=== PATIENT | female | born 1950 | race Hispanic/Latino ===

== ENCOUNTER 2017-03-12 21:01 | Emergency (ER) | payer MEDICARE, BC ==
[2017-03-12 21:20] LABS: #Basophils 0.1 thou/uL (0.0-0.2); #Eosinphils 0.2 thou/uL (0.0-0.7); #Monocytes 0.8 thou/uL (0.11-0.59); #Neutrophils 3.5 thou/uL (1.40-6.50); %Basophils 0.7 % (0.0-1.0); %Lymphocytes 47.5 % (21.0-51.0); %Monocytes 8.8 % (0.0-10.0); Hematocrit 47.5 % (36.0-47.0); Red Blood Cell (RBC) Count 5.01 mill/uL (4.20-5.40); White Blood Cell (WBC) Count 8.5 thou/uL (4.8-10.8)
[2017-03-12] MEDS ORDERED: Famotidine 20 MG TAB ONE (21:39)
[2017-03-12 21:42] LABS: ALT (SGPT) 50 U/L (8-55); AST (SGOT) 38 U/L (5-34); Alkaline Phosphatase 83 U/L (40-150); Anion Gap 13 mmol/L (10-20); BUN (Urea Nitrogen) 11 mg/dL (9.8-20.1); Bilirubin, Total 0.6 mg/dL (0.2-1.2); Calc. Creatinine Clearance 0 mL/min (70-130); Calcium 9.5 mg/dL (7.8-10.44); Carbon Dioxide 28 mmol/L (23-31); Chloride 103 mmol/L (98-107); Estimated GFR-MDRD 63; Globulin 3.5 g/dL (2.4-3.5); Protein, Total 7.5 g/dL (6.0-8.3)
--- NOTE | 2017-03-12 21:57 | RAD ---
PA AND LATERAL VIEWS CHEST: 03/12/17 HISTORY: Epigastric pain, left flank pain. FINDINGS: Comparison is made with exam of 03/04/14. The heart size is mildly enlarged. The aorta is tortuous. The lungs are expanded with mild prominenc e of the pulmonary vascularity. No confluent areas of consolidation, pneumothorax, semaj pulmonary edema or pleural effusions are see. POS: [facility]
[2017-03-12 22:31] LABS: Bilirubin Negative (Negative); Blood, Urine Negative (Negative); Glucose, Urine (Dipstick) Negative (Negative); Ketone, Urine Negative (Negative); Nitrite Positive (Negative); Protein, Urine (Dipstick) Negative (Neg-Trace)
[2017-03-12 22:33] LABS: Bacteria/HPF 4+ HPF (None Seen); Hyaline Casts/LPF 0-3 HYALINE CAST LPF (0-3 Hyaline); RBC/HPF 0-3 HPF (0-3); Squamous Epithelial 0-3 HPF (0-3)
== END 2017-03-12 23:13 | disposition home or self-care (01) ==
LOC: ERS 21:01
DX: N39.0 Urinary tract infection, site not specified (principal); R10.13 Epigastric pain
CPT/HCPCS: 36416; 71020; 80053; 81003; 81015; 85025; 87077; 87086; 87186; 93005